=== PATIENT | female | born 1965 | race Caucasian/White ===

== ENCOUNTER 2018-11-28 09:45 | Inpatient (IN) | payer OTHER ==
[~2018-11-28] VITALS: Ht 154.9 cm; Wt 68.0 kg
[2018-12-04] MEDS ORDERED: toradol PO (08:59)
[2018-12-04] MEDS ORDERED: Tylenol #3 PO (08:59)
[2018-12-04] MEDS ORDERED: MACROBID 100 M100 MG PO (08:59)
== END 2018-12-04 10:48 | disposition home or self-care (01) | DRG 743 ==
LOC: EDSTATUS 09:45 → O/R 11-30 06:21 → OB/GYN 11-30 06:21 → CIR.AMB 11-30 09:45 → EDSTATUS 11-30 09:45 → OB/GYN 11-30 15:13
PROVIDERS: ADMIT Obstetrics & Gynecology
PROC: 0UT70ZZ Resection of Bilateral Fallopian Tubes, Open Approach (ICD-10-PCS; 2018-11-30)
PROC: 0UT90ZZ Resection of Uterus, Open Approach (ICD-10-PCS; principal; 2018-11-30 07:00)
DX: N93.8 Other specified abnormal uterine and vaginal bleeding (principal); N92.0 Excessive and frequent menstruation with regular cycle; N81.10 Cystocele, unspecified; N72 Inflammatory disease of cervix uteri; D25.1 Intramural leiomyoma of uterus; D25.0 Submucous leiomyoma of uterus; D25.2 Subserosal leiomyoma of uterus